=== PATIENT | male | born 1970 | race Caucasian/White ===

== ENCOUNTER 2018-01-22 16:52 | Emergency (ER) | payer BC ==
[~2018-01-22] VITALS: Ht 180.3 cm; Wt 132.9 kg
--- NOTE | ~2018-01-22 | EKG ---
[address] [address] ELECTROCARDIOGRAM REPORT Name: NITZA GOYAL [id number] Admission: 01/22/18 Attend Phys: Discharge: 01/22/18 Date of : 74 Report #: [id number] THIS REPORT FOR: //name// [facility] ED Test Date: 2018-01-22 Test Time: 17:03:25 Pat Name: NITZA GOYAL Department: Room: Gender: M Author: WALTER : 1970 Requested By: Monserrat Boateng Order Number: [id number] MD: Ty Greer Measurements Intervals [place] Rate: 74 P: 33 HI: 173 QRS: 41 QRSD: 99 T: 22 QT: 378 QTc: 420 Interpretive Statements Sinus rhythm Abnormal R-wave progression, early transition No previous ECG available for comparison Electronically Signed On 01-23-2018 9:10:17 CDT by Ty Greer [email or web address] <ELECTRONICALLY SIGNED> By: Ty Greer MD, [facility] 01/23/18 0910 1703 1703 Ty Greer MD, FACC /EPI
[2018-01-22 17:50] LABS: ABSOLUTE NEUTROPHILS 3.7 thou/uL (1.4-8.2); BASOPHILS 0.5 % (0.0-2.0); EOSINOPHILS 1.9 % (0.0-3.0); HEMATOCRIT 45.7 % (42.0-52.0); HEMOGLOBIN 15.6 gm/dL (14.0-18.0); MCH 28.6 pg (26.0-34.0); MCHC 34.2 g/dL (28.0-37.0); MCV 83.6 fL (80.0-100.0); MONOCYTES 8.8 % (1.0-8.0); PLATELET COUNT 222 thou/uL (150-400); POLYS 54.8 % (36.0-66.0); RBC 5.47 mil/uL (4.50-6.00); WBC 6.8 thou/uL (4.0-11.0)
[2018-01-22 17:56] LABS: URINE BILIRUBIN NEGATIVE (Negative); URINE BLOOD NEGATIVE (Negative); URINE CLARITY CLEAR; URINE COLOR YELLOW; URINE GLUCOSE-RANDOM* NEGATIVE (Negative); URINE KETONES NEGATIVE (Negative); URINE LEUKOCYTES-REFLEX NEGATIVE (Negative); URINE NITRITE-REFLEX NEGATIVE (Negative); URINE PROTEIN (DIPSTICK) NEGATIVE (Negative); URINE SPECIFIC GRAVITY >= 1.030 (1.005-1.035); URINE UROBILINOGEN 0.2 E.U./dl (0.2-1.0)
[2018-01-22 17:58] LABS: ANION GAP 7 mmol/L (7-16); BUN 13 mg/dL (7-18); CHLORIDE 106 mmol/L (98-107); CO2 26 mmol/L (21-32); GLUCOSE 109 mg/dL (74-106); POTASSIUM 3.6 mmol/L (3.5-5.1); SODIUM 139 mmol/L (136-145)
[2018-01-22 18:07] LABS: ALBUMIN 3.4 g/dL (3.4-5.0); LIPASE 154 U/L (73-393); SGOT 19 U/L (15-37); SGPT 29 U/L (30-65); TOTAL BILIRUBIN 0.4 mg/dL (<0.1-1.0); TOTAL PROTEIN 6.4 g/dL (6.4-8.2); TROPONIN-I <0.06 ng/mL (<0.06)
[2018-01-22] MEDS ORDERED: LISINOPRIL10 MG PO (18:45)
[2018-01-22 19:21] VITALS: BP 157/110
== END 2018-01-22 19:22 | disposition home or self-care (01) ==
LOC: ER 16:52
PROVIDERS: Nurse Practitioner Family
DX: R07.89 Other chest pain (principal); E78.00 Pure hypercholesterolemia, unspecified; I10 Essential (primary) hypertension; E66.9 Obesity, unspecified; Z68.41 Body mass index [BMI] 40.0-44.9, adult; Z87.891 Personal history of nicotine dependence

== ENCOUNTER 2018-12-18 13:44 | Emergency (ER) | payer OTHER ==
[~2018-12-18] VITALS: Ht 177.8 cm; Wt 125.7 kg
[~2018-12-18 13:44] MED LIST: LISINOPRIL10 MG PO
[2018-12-18 14:28] LABS: URINE BILIRUBIN NEGATIVE (Negative); URINE BLOOD 2+ (Negative); URINE COLOR YELLOW; URINE GLUCOSE-RANDOM* NEGATIVE (Negative); URINE KETONES 1+ (Negative); URINE LEUKOCYTES NEGATIVE (Negative); URINE NITRITE NEGATIVE (Negative); URINE PROTEIN (DIPSTICK) TRACE (Negative); URINE SPECIFIC GRAVITY 1.025 (1.005-1.035); URINE UROBILINOGEN 0.2 E.U./dl (0.2-1.0)
[2018-12-18 14:29] LABS: URINE CLARITY SL HAZY
[2018-12-18 14:32] LABS: SQUAMOUS None Seen /LPF (0-3)
[2018-12-18 14:33] LABS: BACTERIA 1-9 Few /HPF (None Seen); CASTS None Seen /LPF (None Seen); CRYSTALS None Seen /LPF (None Seen); URINE RBC 0-2 Rare /HPF (0-2); URINE WBC 0-5 Rare /HPF (0-5)
[2018-12-18 15:59] LABS: ABSOLUTE NEUTROPHILS 6.1 thou/uL (1.4-8.2); BASOPHILS 0.3 % (0.0-2.0); EOSINOPHILS 0.3 % (0.0-3.0); HEMATOCRIT 42.7 % (42.0-52.0); HEMOGLOBIN 14.5 gm/dL (14.0-18.0); LYMPHOCYTES 11.6 % (24.0-44.0); MCH 28.8 pg (26.0-34.0); MCHC 33.9 g/dL (28.0-37.0); MONOCYTES 8.1 % (1.0-8.0); PLATELET COUNT 158 thou/uL (150-400); POLYS 79.7 % (36.0-66.0); RBC 5.03 mil/uL (4.50-6.00); RDW 14.4 % (10.5-14.5); WBC 7.6 thou/uL (4.0-11.0)
[2018-12-18 16:08] LABS: CALCIUM 8.9 mg/dL (8.5-10.1); CREATININE 0.9 mg/dL (0.7-1.3); POTASSIUM 3.8 mmol/L (3.5-5.1)
[2018-12-18 16:14] LABS: ALBUMIN 2.9 g/dL (3.4-5.0); DIRECT BILIRUBIN 0.3 mg/dL (<0.1-0.3); TOTAL BILIRUBIN 0.7 mg/dL (<0.1-1.0); TOTAL PROTEIN 6.7 g/dL (6.4-8.2)
[2018-12-18] MEDS ORDERED: LIPITOR80 MG PO (17:09)
[2018-12-18] MEDS ORDERED: FLAGYL500 M1 PO (17:24)
[2018-12-18] MEDS ORDERED: CIPRO500 MG PO (17:25)
[2018-12-18 18:09] VITALS: BP 108/62
== END 2018-12-18 18:16 | disposition home or self-care (01) ==
LOC: ER 13:44
PROVIDERS: Nurse Practitioner
DX: K57.32 Diverticulitis of large intestine without perforation or abscess without bleeding (principal); R94.5 Abnormal results of liver function studies; R11.2 Nausea with vomiting, unspecified; Z87.891 Personal history of nicotine dependence

== ENCOUNTER → 2020-09-22 | Outpatient (CLI) | payer OTHER ==
[~2020-09-22] MED LIST changes: +CIPRO500 MG PO; +FLAGYL500 M1 PO; +LIPITOR80 MG PO
== END ==
LOC: ULTRA 07:57
PROVIDERS: ATTEND Family Medicine
DX: N28.1 Cyst of kidney, acquired (principal); R16.1 Splenomegaly, not elsewhere classified; K76.89 Other specified diseases of liver

== ENCOUNTER → 2020-10-30 | Outpatient (CLI) | payer OTHER | LOC: CAT 10-29 08:36 | PROVIDERS: ATTEND Surgery | DX: K57.32 Diverticulitis of large intestine without perforation or abscess without bleeding (principal); D18.00 Hemangioma unspecified site; K76.0 Fatty (change of) liver, not elsewhere classified; N28.1 Cyst of kidney, acquired ==

== ENCOUNTER → 2020-11-19 | Outpatient (CLI) | payer OTHER ==
--- NOTE | 2020-11-12 10:34 | NUR ---
0900-PT WAS BROUGHT BACK TO CV HOLDING TO PREP FOR HIS LIVER BIOPSY. WAS REVIEWING MEDICATIONS WITH PT AND AND NOTED PT WAS ON ASPIRIN 81MG. PT REPORTED THAT HIS LAST DOSE OF ASPIRIN WAS YESTERDAY, 11/11/20 AND THAT NO ONE TOLD HIM TO HOLD ANY MEDICATIONS. WAS NOTIFIED AND WE WERE TOLD BIOPSY WOULD NOT BE ABLE TO BE DONE DUE TO THE FACT THAT PATIENT HAD NOT HELD HIS ASPIRIN AND WE COULD RESCHEDULE IT IN 5 DAYS AFTER ASA HAS BEEN HELD. I NOTIFIED PT AND THAT PROCEDURE WOULD NEED TO BE RESCHEDULED. BECAME VERY TEARY AND UPSET AND ASKED WHY NO ONE TOLD THEM TO HOLD IT. THEY JUST WANT ANSWERS. I SAT ON THE BED WITH THE PATIENT TO LISTEN TO THEIR COMPLAINTS. THE PATIENT PUSHED ME OFF AND SAID HE WAS GETTING DRESSED SO THEY COULD LEAVE. THE CONTINUED TO CRY AND SAID THEY WERE ALREADY "UPSET WITH THIS HOSPITAL" BECAUSE OF A PREVIOUS TEST HER HAD AND NO ONE TELLING THEM THE RESULTS. I CLOSED THE DOOR AND LET THE PATIENT GET DRESSED. THE CAME OUT TO LET US KNOW HOW UPSET HER WAS. HE WALKED OUT AND I TRIED TO TALK TO THEM ABOUT RESCHEDULING THE PROCEDURE AND THEY KEPT ON WALKING AND USING EXPLICITS TO ME. THEY SAID WE CAN JUST CALL THEM TO RESCHEDULE. BRONZER NOTIFIED.
[~2020-11-19] VITALS: Ht 180.3 cm; Wt 141.0 kg
[~2020-11-19] MED LIST changes: +ASA81BEC PO; +SUPER THERAVIT1 EACH PO
[2020-11-19 09:56] LABS: HEMATOCRIT 45.4 % (42.0-52.0); HEMOGLOBIN 15.1 gm/dL (14.0-18.0); MCH 28.3 pg (26.0-34.0); MCHC 33.3 g/dL (28.0-37.0); MCV 85.1 fL (80.0-100.0); RBC 5.33 mil/uL (4.50-6.00); RDW 14.8 % (10.5-14.5); WBC 6.2 thou/uL (4.0-11.0)
[2020-11-19 10:07] VITALS: BP 163/102
[2020-11-19 10:08] LABS: CALCIUM 9.1 mg/dL (8.5-10.1); CREATININE 0.9 mg/dL (0.7-1.3); POTASSIUM 4.5 mmol/L (3.5-5.1)
[2020-11-19 10:10] LABS: INR 0.93; PROTIME 10.2 Seconds (10.5-12.1)
[2020-11-19 12:02] VITALS: BP 170/100
--- NOTE | 2020-11-19 12:45 | NUR ---
LATE ENTRY. 1215: PT BROUGHT TO ROOM 3 IN CV HOLDING AFTER LIVER BIOPSY. C/O RT SIDE PAIN 8/10 RADIATES TO RT SHOULDER. AND BP 194/117. PAIN ESPECIALLY WHEN TAKING BREATH. DR SNOW NOTIFIED. CXR ORDERED. 1215: FENTANYL 50MCG GIVEN 1219: HYDRALAZINE 10MGIV GIVEN FOR HIGH BLOOD PRESSURE 1223: HYDRALAZINE 10MG REPEATED FOR CONTINUED HIGH BP 180/129. 1225: DR SNOW NOTIFIED OF NO RELIEF FROM PAIN AND CONTINUED HIGH BP 1230: FENTANYL 50MCG REPEATED PER VERBAL ORDER FROM DR SNOW 1245: DR SNOW AT BEDSIDE. CONTINUED PAIN HYDROMORPHONE ORDERED 1252: HYDROMORPHONE 2MG IV PUSH GIVEN FOR CONTINUED PAIN. BP IMPROVING. 1305: PAIN IMPROVED TO 5-6. BP 154/82
--- NOTE | 2020-11-19 14:41 | NUR ---
LATE ENTRY: PT DC'D AT 1410 PER VOLUNTEER WHEELCHAIR. PAIN CONTROLLED NOW AND BP CONTROLLED. PT INST TO TAKE HIS BP MED WHEN HE GETS HOME. PT GIVEN SCRIPT FOR TYLENOL#[address] SNOW FOR PAIN CONTROL. VERBALIZES UNDERSTANDING OF INST.
--- NOTE | 2020-11-20 18:06 | PATH ---
[facility] [address] [place] [address] PATHOLOGY RPT PROCEDURE Name: NITZA GOYAL ALLEY Room #: [facility] M.R.#: [id number] Admission: 11/19/20 Date of : 74 Discharge: Report #: [id number] Path Case #: [id number] [facility] Accession Number: [id number] . 01 Material submitted: . liver - RIGHT LOBE LIVER MASS. Modifiers: right, LOBE . 01 Clinical history: . RIGHT FOCAL LIVER MASS . 02 Diagnosis: Liver, right focal liver mass, needle core biopsy: - Hemangioma. - Tiny focus of hepatic parenchyma present showing nonspecific changes. - Negative for malignancy. (IUV:tawny; 11/20/2020) QMS 11/20/2020 1242 Local . 02 Electronically signed: . Christine Geiger MD, Pathologist NPI- [id number] . 01 Gross description: . Received in formalin labeled "Jeffery, Nitza and right lobe liver mass". Received are 4 liver core biopsies ranging from 1.0-1.8 cm in length and 0.1 cm in diameter. The specimen is entirely submitted in cassettes A1 and A2([facility]; 11/19/2020) J/J 11/19/2020 1636 Local . 02 Pathologist provided ICD-10: D18.00 . 02 CPT . 328392 Specimen Comment: A courtesy copy of this report has been sent to [phone], [phone] Specimen Comment: [phone], Specimen Comment: Report sent to ,DR LOCK / DR SNOW Performed at: [address], [place] [id number] MD Rai Parry MD Phone: [phone] Performed at: [address] [id number] MD Christine Geiger MD Phone: [phone]
== END | disposition home or self-care (01) ==
LOC: ULTRA 11-12 08:14
PROVIDERS: Radiology Diagnostic Radiology; ATTEND Surgery
DX: D18.09 Hemangioma of other sites (principal); I10 Essential (primary) hypertension; E78.5 Hyperlipidemia, unspecified; E78.00 Pure hypercholesterolemia, unspecified; E66.09 Other obesity due to excess calories; Z98.890 Other specified postprocedural states; Z79.899 Other long term (current) drug therapy; Z87.891 Personal history of nicotine dependence; Z79.82 Long term (current) use of aspirin